=== PATIENT | male | born 1980 | race African-American/Black ===

== ENCOUNTER 2018-10-06 08:37 | Outpatient (CLI) | payer OTHER ==
[2018-10-06] MEDS ORDERED: Iopamidol 370 76% 100 ML VIAL ONE (09:28)
--- NOTE | 2018-10-06 09:46 | CT ---
CT ABDOMEN AND PELVIS WITH AND WITHOUT IV CONTARST: HISTORY: Umbilical hernia without obstruction or gangrene. FINDINGS: The lung bases are clear, except for a calcified granuloma in the right middle lobe. No calcified ga llstones are seen. A tiny low-density lesion is seen in the right lobe of the liver close to the dom e, too small to characterize but statistically likely to represent a cyst. The spleen, pancreas, adr enal glands, and right kidney are normal. There is a 1 cm well circumscribed low-density lesion in t he left posterior renal cortex, likely cyst. No calculi are seen in the kidney, ureters, or the urin sy bladder. No hydroureteral nephrosis is noted on either side. No free air, free fluid, or lymphadenopathy is seen in the abdomen or pelvis. The small bowel loops are not abnormally dilated. There is sigmoid diverticulosis without diverticulitis. There is thicke lily of the wall of the colon (predominantly transverse colon). The tiny fat-containing umbilical he rnia is noted. There is no evidence of aneurysmal dilatation of the abdominal aorta. No acute osseo us abnormalities are seen. IMPRESSION: 1. Probable small left renal cyst. 2. Sigmoid diverticulosis. 3. Tiny fat-containing umbilical hernia. 4. Prominence of the wall of the colon (predominantly transverse colon). Incomplete distention vers us wall thickening. Colonoscopy would be helpful. POS: [facility]
== END 2018-10-06 08:38 | disposition home or self-care (01) ==
LOC: CT 08:37
PROVIDERS: ATTEND Family Medicine
DX: K42.9 Umbilical hernia without obstruction or gangrene (principal); K57.30 Diverticulosis of large intestine without perforation or abscess without bleeding
CPT/HCPCS: 74178; Q9967